=== PATIENT | female | born 1995 | race Hispanic/Latino ===

== ENCOUNTER 2025-07-08 21:57 | Emergency (ER) | payer SELFPAY ==
[~2025-07-08] VITALS: Ht 157.5 cm; Wt 77.1 kg
[2025-07-08 22:53] VITALS: TEMP 98.7
[2025-07-08 23:23] LABS: CORONAVIRUS COVID-19 AG NEGATIVE (NEGATIVE); STREPTOCOCCUS GRP A ANTIGEN POSITIVE (NEGATIVE)
[2025-07-08] MEDS: PENICILLIN G BENZATHINE LA 1.2 MU TBX IM STA (23:35)
[2025-07-08] MEDS: KETOROLAC TROMETHAMINE 60 MG/2 ML VIAL IM STA (23:39)
[2025-07-08] MEDS: DEXAMETHASONE SOD PHOS 10 MG/1 ML VIAL IM STA (23:39)
[2025-07-08] MEDS ORDERED: AMOX TR-K CLV1 EAC2 PO (23:42)
[2025-07-08] MEDS ORDERED: SODIUM CHLORIDE 0.9% 1000ML 1,000 ML ONE (23:42)
[2025-07-08] MEDS ORDERED: PREDNISONE20 MG PO (23:48)
[2025-07-08] MEDS: SODIUM CHLORIDE 0.9% 1000ML 1,000 ML IV STA (23:49)
[2025-07-09 00:17] VITALS: PULSE 97; RESP 16; O2SAT 96
== END 2025-07-09 00:44 | disposition home or self-care (01) ==
LOC: ER 22:03
DX: H66.91 Otitis media, unspecified, right ear (principal); J02.0 Streptococcal pharyngitis; Z11.52 Encounter for screening for COVID-19
CPT/HCPCS: 83518; 87428; 99283; J1100; J1885; J7030